=== PATIENT | female | born 1980 | race Caucasian/White ===

== ENCOUNTER 2023-05-28 15:40 | Emergency (ER) | payer SELFPAY ==
[2023-05-28 15:50] VITALS: BP 150/93; PULSE 93; RESP 18; O2SAT 96; BMI 36.6
--- NOTE | 2023-05-28 16:19 | CRLHL7_ITS ---
For Patients: As a result of the Cures Act, medical imaging exams and procedure reports are released immediately into your electronic medical record. You may view this report before your referring provider. If you have questions, please contact your health care provider. Indication: Trauma. Technique: Left hand, 3 views. Comparison: None. Findings: Bones: Alignment is normal. No fractures or bone lesions. Joint spaces: Unremarkable. Soft tissues: Unremarkable. Impression: No sign of acute injury. Dictated by Cheryl Downs MD @ 05/28/2023 5:43:20 PM (Electronically Signed)
--- NOTE | 2023-05-28 16:19 | ED.UPPEXIN ---
HPI - Extremity Injury (Upper) General Chief Complaint: Extremity Pain/Injury, Upper Stated Complaint: L hand, thinks broke two fingers Time Seen by Provider: 05/28/23 15:42 History of Present Illness HPI narrative: This 43-year-old female comes in with an injury to the middle and ring fingers of her left hand. This happened this morning as she states that she got her fingers caught in the car door that had closed. She states that she was reaching for the seatbelt and was in a hurry when this occurred. She reports pain in the distal interphalangeal joints of each of these fingers. She is able to move her fingers but has decreased range of motion due to pain. Related Data Home Medications Medication Instructions Recorded Confirmed No Known Home Medications 05/28/23 05/28/23 Allergies Allergy/AdvReac Type Severity Reaction Status Date / Time latex Allergy Verified 05/28/23 15:52 Review of Systems Status of ROS: Reports: 10 or more systems reviewed and unremarkable except as noted in History and below Narrative: Constitutional: No fevers, no weight gain or loss. Eyes: No discharge. No vision changes. HENT: No congestion, no sore throat, no ear pain. Cardiovascular: No chest pain, no palpitations. Respiratory: No shortness of breath, no wheezes, no cough. Gastrointestinal: No abdominal pain, no vomiting, no diarrhea. Genitourinary: No dysuria, no hematuria. Musculoskeletal: Injury to left middle and ring fingers as described above. Skin: No rashes, no pruritis. Neurological: No dizziness, weakness, sensory change, speech change. Endo/Heme/Allergies: No bruising or bleeding. No polydipsia. Pysch: no suicidality, no anxiety, no insomnia. All other systems reviewed and are negative. [facility] Social History Smoking Status: Current every day smoker What tobacco products do you use: cigarettes How often do you have a drink containing alcohol: never How often do you have six or more drinks on one occasion: Never AUDIT-C Alcohol total score: 0 Non-prescribed substance use: denies use Exam Narrative: Exam Narrative: Constitutional: Well-developed, well-nourished, no acute distress. HEENT: Normocephalic, atraumatic. Neck: Normal range of motion. Nontender. Supple. Heart: Intact distal pulses. Lungs: No chest discomfort. No wheezes, rhonchi, or rales. Abdomen: Nontender. Back: Normal range of motion. Extremities: Mild swelling at the D IP joints of the left middle and ring finger. No sign of tendon injury. No laceration or abrasion. Skin: Intact. No rash. Warm. No erythema or pallor. Neurologic: No altered sensation. No weakness. Alert and oriented. Psychiatric: No suicidality. No anxiety or depression. No insomnia. Nursing notes and vitals signs are reviewed. Const: Vital Signs, click to edit/add: Vital Signs - 24 hr 05/28/23 15:50 Pulse Rate [Left P ulse Oximeter] 93 Respiratory Rate 18 Blood Pressure [Le ft Upper Arm] 150/93 H Pulse Oximetry 96 Course Vital Signs Vital signs: Initial Vital Signs Pulse Rate 93 05/28/23 15:50 Pulse Rhythm Regular 05/28/23 15:50 Pulse Strength 3+ Normal 05/28/23 15:50 Respiratory Rate 18 05/28/23 15:50 Blood Pressure 150/93 H 05/28/23 15:50 Blood Pressure Mean 112 H 05/28/23 15:50 Blood Pressure Position Sitting 05/28/23 15:50 Pulse Oximetry 96 05/28/23 15:50 Vital Signs Pulse Rate 93 05/28/23 15:50 Respiratory Rate 18 05/28/23 15:50 Blood Pressure 150/93 H 05/28/23 15:50 Pulse Oximetry 96 05/28/23 15:50 Pulse Rate 93 05/28/23 15:50 Respiratory Rate 18 05/28/23 15:50 Blood Pressure 150/93 H 05/28/23 15:50 Pulse Oximetry 96 05/28/23 15:50 MDM - Extremity Injury (Upper) [facility] Narrative Medical decision making narrative: This patient injured the middle and ring fingers of her hand earlier today when a car door accidentally closed on the distal portion of these 2 fingers. X-ray imaging by my review with radiology report pending shows no evidence of fracture or dislocation. The patient's fingers were ava-taped together for additional support and comfort. I encouraged increase activity as tolerated and using [id number] medicines also as needed and directed. Discharge Plan Discharge Clinical Impression: Finger sprain Patient Disposition: Home, Self-Care Condition: Stable Additional Instructions: Increase activity as tolerated. Use [id number] medicines as needed and directed. Follow up with MD return if worsening. Prescriptions: No Action No Known Home Medications Follow Up/Referrals: Provider,Not a Local [Primary Care Provider] - Stand Alone Forms: [employer] Info Instructions
== END 2023-05-28 17:09 | disposition home or self-care (01) ==
PROVIDERS: Emergency Provider Emergency Medicine Emergency Medical Services
DX: S63.613A Unspecified sprain of left middle finger, initial encounter (principal); W23.0XXA Caught, crushed, jammed, or pinched between moving objects, initial encounter
CPT/HCPCS: 73130; 99283; 99284